=== PATIENT | male | born 1970 | race Caucasian/White ===

== ENCOUNTER 2019-02-07 20:50 | Emergency (ER) | payer OTHER ==
--- NOTE | 2019-02-07 20:54 | ERPHSYRPT ---
- History of Present Illness Time Seen by Provider: 02/07/19 21:00 Source: patient, family Exam Limitations: no limitations Physician History: 48 y/o right handed white male presents with right thumb dog bite. 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 pts tetanus not utd. pt broke up a dog fight between two of his own dogs. dogs immunizations utd. pt also concerned his bp elevated although he did not measure Timing/Duration: today Severity: mild Associated Symptoms: denies symptoms Allergies/Adverse Reactions: No Known Drug Allergies Allergy (Verified 02/07/19 21:15) Home Medications: Lisinopril 40 mg PO DAILY 02/07/19 [History] - Review of Systems Constitutional: No Symptoms Eyes: No Symptoms Ears, Nose, & Throat: No Symptoms Respiratory: No Symptoms Cardiac: No Symptoms, No Chest Pain, No Palpitations, No Syncope Abdominal/Gastrointestinal: No Symptoms, No Abdominal Pain, No Nausea, No Vomiting Genitourinary Symptoms: No Symptoms Musculoskeletal: Injury (right thumb pain secondary to dog bite) Skin: Other (dog bite to right thumb) Neurological: No Symptoms Psychological: No Symptoms Endocrine: No Symptoms Hematologic/Lymphatic: No Symptoms Immunological/Allergic: No Symptoms All Other Systems: Reviewed and Negative - Past Medical History Pertinent Past Medical History: Yes Neurological History: No Pertinent History ENT History: No Pertinent History Cardiac History: No Pertinent History Respiratory History: No Pertinent History Endocrine Medical History: No Pertinent History Musculoskeletal History: No Pertinent History GI Medical History: No Pertinent History History: No Pertinent History Psycho-Social History: No Pertinent History Male Reproductive Disorders: No Pertinent History - Past Surgical History Neuro Surgical History: No Pertinent History Cardiac: No Pertinent History Respiratory: No Pertinent History Gastrointestinal: No Pertinent History Genitourinary: No Pertinent History Musculoskeletal: No Pertinent History Male Surgical History: No Pertinent History - Nursing Vital Signs Nursing Vital Signs: Initial Vital Signs Temperature 98.1 F 02/07/19 20:57 Pulse Rate 87 02/07/19 20:57 Respiratory Rate 18 02/07/19 20:57 Blood Pressure 101/68 02/07/19 20:57 O2 Sat by Pulse Oximetry 98 02/07/19 20:57 Pain Scale Pain Intensity 5 - Physical Exam General Appearance: no apparent distress, alert Eye Exam: PERRL/EOMI, eyes nml inspection Ears, Nose, Throat Exam: normal ENT inspection, moist mucous membranes Neck Exam: normal inspection, non-tender, supple, full range of motion Respiratory Exam: No chest tenderness Rectal Exam: not done Back Exam: normal range of motion, No CVA tenderness, No vertebral tenderness Extremity Exam: other (right thumb abrasion X2; tendon intact; nv intact; two superficial 4mm length abrasions. no fb ) - Course Nursing assessment & vital signs reviewed: Yes Ordered Tests: Medication Summary Discontinued Medications Generic Name Dose Route Start Last Admin Trade Name Freq PRN Reason Stop Dose Admin Hydrocodone Bitart/Acetaminophen 1 tab 02/07/19 21:37 02/07/19 21:46 Vivian 5/325 Mg PO 02/07/19 21:38 1 tab STAT ONE Administration Hydrocodone Bitart/Acetaminophen Confirm 02/07/19 21:42 Vivian 5/325 Mg Administered 02/07/19 21:43 Dose 1 tab .ROUTE .STK-MED ONE Amoxicillin/Clavulanate Potassium 500 mg 02/07/19 21:37 02/07/19 21:46 Augmentin 500-125 Tablet PO 02/07/19 21:38 500 mg STAT ONE Administration Amoxicillin/Clavulanate Potassium Confirm 02/07/19 21:42 Augmentin 500-125 Tablet Administered 02/07/19 21:43 Dose 500 mg .ROUTE .STK-MED ONE Bacitracin Zinc 0.9 gm 02/07/19 21:36 02/07/19 21:47 Baciguent Packet TP 02/07/19 21:37 0.9 gm STAT ONE Administration Bacitracin Zinc Confirm 02/07/19 21:42 Baciguent Packet Administered 02/07/19 21:43 Dose 1 gm .ROUTE .STK-MED ONE Diphtheria/Tetanus/Acell Pertussis 0.5 ml 02/07/19 21:36 02/07/19 21:47 Adacel Vial IM 02/07/19 21:37 0.5 ml .ONCE ONE Administration Diphtheria/Tetanus/Acell Pertussis Confirm 02/07/19 21:43 Adacel Vial Administered 02/07/19 21:44 Dose 0.5 ml IM .STK-MED ONE - Progress Progress: improved Counseled pt/family regarding: diagnosis, need for follow-up - Departure Departure Disposition: Home Clinical Impression: Dog bite of finger Condition: Stable Critical Care Time: No Referrals: MIGUEL SAMUELS MD [Primary Care Provider] - Additional Instructions: keep thumb dog bite sites clean daily with soap and water. apply antibiotic ointment daily. cover with bandage until healed. use tylenol and ibuprofen for pain Prescriptions: Amoxicillin/Potassium Clav [Augmentin 500-125 Tablet] 1 each PO Q8H #15 tablet
[2019-02-07] MEDS ORDERED: BACIGUENT PACKET TP ONE (21:36)
[2019-02-07] MEDS ORDERED: Adacel Vial IM ONE ×2 (21:36→21:43)
[2019-02-07] MEDS ORDERED: NORCO 5/325 MG PO ONE (21:37)
[2019-02-07] MEDS ORDERED: BACIGUENT PACKET ONE (21:42)
[2019-02-07] MEDS ORDERED: NORCO 5/325 MG ONE (21:42)
[2019-02-07] MEDS ORDERED: Augmentin 500-125 Tablet ONE (21:42)
[2019-02-07] MEDS: Augmentin 500-125 Tablet PO ONE (21:46)
[2019-02-07 22:08] VITALS: BP 93/62; PULSE 77; O2SAT 95
== END 2019-02-07 22:10 | disposition home or self-care (01) ==
LOC: ED 20:50
DX: S60.311A Abrasion of right thumb, initial encounter (principal); W54.0XXA Bitten by dog, initial encounter
CPT/HCPCS: 90471; 90715; 99283; A9270-GY